=== PATIENT | male | born 1965 | race Hispanic/Latino ===

== ENCOUNTER 2016-07-14 15:57 | Emergency (ER) | payer SELFPAY ==
[~2016-07-14] VITALS: Ht 167.6 cm; Wt 86.4 kg
[2016-07-14 16:12] VITALS: BP 207/125; PULSE 99; O2SAT 98
[2016-07-14 16:40] VITALS: BP 190/90; PULSE 102; RESP 20; O2SAT 98
--- NOTE | 2016-07-14 16:47 | DRSVH ---
PROCEDURE: X-RAY CHEST ONE VIEW, PORTABLE ([id number]) INDICATIONS: CP TECHNIQUE: One view of the chest was acquired. COMPARISON: None. FINDINGS: Surgical changes and devices: None. Lungs and pleura: No pleural effusions or pneumothorax. Lungs are clear. Mediastinum: Mediastinal contours appear normal. Heart size is normal. Bones and chest wall: No suspicious bony lesions. Overlying soft tissues appear unremarkable. IMPRESSION: No acute cardiopulmonary disease process. Dictated by: Aida Morris MD, PhD on 07/14/2016 at 16:44 Approved by: Aida Morris MD, PhD on 07/14/2016 at 16:45
[2016-07-14 16:53] LABS: BASOPHILS % (AUTO) 0.2 % (0-3); EOSINOPHILS % (AUTO) 1.2 % (0-5); MONOCYTES % (AUTO) 7.8 % (4-12); Mean Corpuscular Hemoglobin 28.2 pg (27.0-35.0); Mean Corpuscular Volume 83.1 fL (81-100); NEUTROPHILS % (AUTO) 63.1 % (40-74); Platelet Count 340 bil/L (150-400)
--- NOTE | 2016-07-14 17:01 | ED.REPORT ---
HPI-Chest Pain 40 and Over Date of Service Jul 14, 2016 ED Provider: Rufino Moise MD This is a male with a history of HTN and DM presenting to the emergency department complaining of chest discomfort that began 2 days ago. Described as substernal chest pressure. He woke up from sleep 2 nights ago short of breath and anxious but denies diaphoresis. States he was very anxious and scared and was unable to sleep. He took antacids yesterday morning and the pressure resolved and he was able to sleep as usual. Today he took antacids in the morning prophylactically. While at work today, he developed a sudden chest pinching with exertion that resolved with 1-2 seconds, this occurred 3 hours ago. Denies chest pain, shortness breath, change LOC, nausea, vomiting, abdominal pain, fever, chills, lightheadedness, or dizziness. He is not taking medications to treat DM or HTN at this time. Nursing Notes Stated Complaint: CHEST PAIN Chief Complaint: Chest Pain Nursing Notes Reviewed: Yes ([employer], [employer] not reconciled) Allergies: Coded Allergies: No Known Allergies (Unverified , 07/14/16) Scheduled Lisinopril (Lisinopril) 20 Mg Tablet 20 MG PO DAILY Metformin (Metformin) 500 Mg Tablet 500 MG PO BID Omeprazole (Omeprazole) 20 Mg Tablet.dr 20 MG PO DAILY Scheduled PRN Lorazepam (Lorazepam) 1 Mg Tablet 1 MG PO BID PRN PRN For Anxiety General Time Seen by MD: 16:55 Chief Complaint Chest pressure Hx Obtained From: Patient Arrived By: Walk-in Sudden in Onset?: Yes Onset Occurred: 2 days ago Symptom Duration: Since onset Severity: Current: No pain currently Severity: Maximum: Mild Pertinent Negative: Pt denies other symptoms Recent Healthcare: No recent doctor visit, No recent hospitalization Similar Sx Previous: No Past Medical History Past Medical History Reports: Diabetes mellitus, Hypertension Past Surgical History Denies Ambulatory Status Independent Review of Systems Constitutional: Denies: Chills, Fatigue Respiratory: Reports: Shortness of breath, Denies: Non-productive cough Cardiovascular: Reports: Chest pain GI: Denies: Abdominal pain, Nausea, Vomiting Neurologic: Denies: Headache Complete sys rev & neg: except as marked. Physical Exam Initial Vital Signs Vital Signs (First) Date Time Temp Pulse Resp B/P Pulse Ox O2 Delivery O2 Flow Rate FiO2 07/14/16 16:12 37.1 99 207/125 98 Room Air 07/14/16 16:40 20 Initial VS: Reviewed, Vital signs abnormal (HTN) Head / Eyes: Atraumatic, Normocephalic, PERRL ENT: Mucous membranes moist, Conjunctiva normal, No scleral icterus Neck: Supple, Non-tender, Full range of motion Extremities: Vascular intact, Neuro intact, No swelling, No tenderness Skin: Warm, Dry, No cyanosis Neurologic: Alert, Oriented, Nonfocal Psychiatric: Mood/affect normal, Behavior normal, Normal thought content General/Constitutional: Awake, Alert Mildly anxious Respiratory / Chest: Breath sounds NL, Breath sounds = bilat, No respiratory distress, No rales, No rhonchi, No wheezing, No stridor, No chest tenderness Cardiovascular: No murmurs Abdomen: Soft, Non-tender, McBurney's non-tender, No guarding, No rebound, BS normoactive, No distention, No hernia, No palpable mass Interpretation & Diagnostics Lab Results Interpretation Result Diagram: 07/14/16 1630 07/14/16 1630 Test 07/14/16 16:30 White Blood Count 8.9th/mm3 (3.8-10.1) Red Blood Count 5.22mil/mm3 (4.40-5.80) Hemoglobin 14.7g/dL (13.8-17.2) Hematocrit 43.4% (41.0-50.0) Mean Corpuscular Volume 83.1fL (81-100) Mean Corpuscular Hemoglobin 28.2pg (27.0-35.0) Mean Corpuscular Hemoglobin Concent 33.9% (32.0-37.0) Red Cell Distribution Width 13.4% (12.3-15.4) Platelet Count 340bil/L (150-400) Neutrophils (%) (Auto) 63.1% (40-74) Lymphocytes (%) (Auto) 27.6% (14-46) Monocytes (%) (Auto) 7.8% (4-12) Eosinophils (%) (Auto) 1.2% (0-5) Basophils (%) (Auto) 0.2% (0-3) Sodium Level 139mEq/L (134-144) Potassium Level 4.0mEq/L (3.5-5.2) Chloride Level 101mEq/L (97-108) Carbon Dioxide Level 25mmol/L (18-29) Blood Urea Nitrogen 16mg/dL (6-24) Creatinine 0.98mg/dL (0.76-1.27) Estimat Glomerular Filtration Rate 86mL/min (>59) Glucose Level 153mg/dL (60-99) Calcium Level 9.4mg/dL (8.5-10.1) Magnesium Level 1.9mg/dL (1.6-2.6) Total Bilirubin 0.3mg/dL (0.0-1.2) Aspartate Amino Transf (AST/SGOT) 26U/L (0-50) Alanine Aminotransferase (ALT/SGPT) 28U/L (0-44) Alkaline Phosphatase 101U/L (25-150) Troponin T < 0.010ug/L (0.0-0.011) Total Protein 7.4g/dL (6.4-8.4) Albumin 4.0g/dL (3.4-5.0) Lab Results Interpretation: CBC normal + CMP normal Troponin negative is as after symptoms that were actually prolonged more than 24 hours ago, symptoms today are less than a few seconds and serial troponins not indicated in this scenario ECG Interpretation ECG Interpretation: NSR at a rate of 96 Time: 17:21 Interpreted by: ED physician X-Ray Chest Interpretation Chest Xray Interpretation: IMPRESSION: No acute cardiopulmonary disease process. Dictated by: Aida Morris MD, PhD on 07/14/2016 at 16:44 Approved by: Aida Morris MD, PhD on 07/14/2016 at 16:45 Interpretation / Wet Read by: Kiki read ED physician Re-Eval/Medical Decision Med Decision/Clinical Course This is a 51-year-old male with a history of high blood pressure and type II diabetes he is not currently on medications for either his etc. he could not afford anything, who presents for evaluation of chest discomfort the request of his family. Patient reports his this month, 2 days ago he had an episode of chest discomfort and then woke up tonight with some slight shortness of breath-and felt very anxious. He is not certain if this might be anxiety D secondary to the recent of his . They he had a sharp stabbing discomfort that lasted a couple seconds and then resolved, but he told his family and was referred to come to the ED to get checked out. He has had no sustained chest pain, no exertional symptoms and reports she goes for walks, he works at [employer] and is quite active, and has no exertional component to the symptoms. They are been no diaphoresis, no radiation of extremities or other high risk features. Tympanic. He does report he belches more, has been told he has had similar symptoms were just had a prior cardiac workup was negative is told to take some Gas-X which he did but he still thinks he has a little bit of gas. Exam he appears slightly anxious but otherwise well. He has a normal physical exam. His EKG is normal. His blood work is normal. Again the actual episode of chest discomfort and shortness of breath that lasted greater than 20 minutes was 2 days ago and given a troponin is negative, serial troponins are not indicated given today's symptoms lasted me her seconds. Overall symptoms are very atypical, and there is a strong clinical sense of anxiety depression following the recent of his . He would like some medication for anxiety. I am not finding tissue that hospitalization is warranted. The patients HEART score is 2, with him at very low risk for MACE. She was being discharged she is advised to continue his aspirin which he takes daily. I have gone ahead and written a prescription for lisinopril and metformin for the patient but recommended he does need follow-up primary care physician, and explained that the medications that I would have written for available at [facility] for very discounted rate. Overall, I think his probability of ongoing heart disease as the cause of his symptoms is low. He does have risk factors with diabetes and hypertension thus I have discussed following up with the PCP for consideration of stress testing. Routine and discharge and return precautions are reviewed with the patient. The patient's asked for little bit of anxiety medicine, and also like some a prescription for some omeprazole-written for #15 1 mg lorazepam, and a supply of omeprazole. Patient is discharged in good condition. Source of Hx: Old records Time of Eval: 18:31 Re-Evaluation/Progress Note: Discussed plan for d/c, all questions adddressed. Differential Diagnosis: Positive: Chest pain, acute, Negative: Acute coronary syndrome, Acute myocardial infarct, Dysrhythmia, Esophageal rupture, Gun shot wound chest, Pleurisy, Pneumomediastinum, Pneumonia , Pneumothorax, Pulmonary edema, Pulmonary embolism, Rib fracture, Stab wound chest, Unstable angina Counseled Regarding: Diagnosis, Lab results, Need for follow-up Discharge & Departure Primary Impression: Chest pain Chest pain type: unspecified Qualified Code: R07.9 - Chest pain, unspecified Additional Impressions: HTN (hypertension) Hypertension type: unspecified secondary hypertension Hypertension goal: unspecified goal Qualified Code: I15.9 - Secondary hypertension, unspecified Diabetes Diabetes mellitus type: type 2 Diabetes mellitus complication status: with unspecified complications Qualified Code: E11.8 - Type 2 diabetes mellitus with unspecified complications Disposition: Home Discharge Condition All VS Reviewed: Yes Condition: Stable Additional Instructions: 1. Your tests in the emergency department did not reveal any markers of a heart attack or other dangerous cause of the chest discomfort. 2. Additional testing at this time is not required. 3. However it is important that you your blood pressure and diabetes P Onofre. 4. I have written a prescription for lisinopril 20 mg daily for the blood pressure. 5. I have written a prescription for metformin 500 mg twice a day for the diabetes. 6. These prescriptions can be filled at [facility] for approximately $10 for 90 days supply for each medication. 7. Continue your daily aspirin 8. It is true that the response here may be contributing to some stress and anxiety which might be contributing to her symptoms. You can try taking a lorazepam 1 mg x 1 if needed for anxiety/stress. This is a short-term medicine and he wanted to use it as little as possible. It does cause some drowsiness and he should not drive for at least 4 hours after taking. 9. If you develop new or worsening symptoms. If you develop exertional chest discomfort, if you develope chest pain this lasting for more than 20 minutes. If he develops shortness of breath, or similar concerning symptoms, return to the emergency department. 10. I do recommend that you also may follow-up with Dr. Gabriel, to discuss "stress test" to complete a heart evaluation. Referrals: Carl Gabriel MD (PCP) Scribe Attestation Portions of this note were transcribed by Marni Chowdhury. I, Dr. Moise personally performed the history, physical exam and medical decision-making; I reviewed and confirmed the accuracy of the information in the transcribed note. Signed by Quinten Jones, 07/14/2016 at 17:00. Rufino Moise MD Jul 14, 2016 17:01 MARNI CHOWDHURY Jul 14, 2016 17:16
[2016-07-14 17:13] LABS: TROPONIN T < 0.010 ug/L (0.0-0.011)
[2016-07-14 17:18] LABS: Magnesium 1.9 mg/dL (1.6-2.6)
[2016-07-14 17:59] VITALS: BP 168/98; PULSE 67; RESP 16; O2SAT 97
[2016-07-14] MEDS ORDERED: LORA1TAB PO (18:29)
[2016-07-14] MEDS ORDERED: METF500T4 PO (18:29)
[2016-07-14] MEDS ORDERED: LISI-567 PO (18:29)
[2016-07-14] MEDS ORDERED: OMEP20TA86 PO (18:38)
[2016-07-14 18:44] VITALS: BP 169/91; PULSE 67; RESP 17; O2SAT 96
== END 2016-07-14 18:51 | disposition home or self-care (01) ==
LOC: SED 15:57
DX: R07.9 Chest pain, unspecified (principal); I10 Essential (primary) hypertension; E11.9 Type 2 diabetes mellitus without complications; Z79.84 Long term (current) use of oral hypoglycemic drugs